=== PATIENT | male | born 1985 | race Caucasian/White ===

== ENCOUNTER 2019-07-08 15:11 | Emergency (ER) | payer OTHER, SELFPAY ==
[2019-07-08 15:13] VITALS: BP 154/89; PULSE 80; RESP 16; TEMP 37.2; O2SAT 97; BMI 34.2
--- NOTE | 2019-07-08 15:18 | ED.VIS.GEN ---
History of Present Illness Chief Complaint: Shortness of Breath Informant: Patient Onset: Days Context: Gradual Onset Timing: Continuous Current Severity: Moderate Maximum Severity: Moderate Narrative: The patient is an otherwise healthy male presents to the emergency department with cough, shortness of breath, and fever. His symptoms began on . He states he had fever and chills. Over the weekend, he had worsening cough with productive sputum. He states that over the past 36 hours, he had persistent fever. He denies any chest pain. He denies any history of underlying lung disease. He does not smoke. He denies any recent sick contacts. Prior similar symptoms: No Recent Illness/Hospitalization: No Past Medical History - Allergies and Home Meds Allergies/Adverse Reactions: Allergies No Known Allergies Allergy (Verified 07/08/19 15:13) Primary Care Physician: Care Physician,No Primary [Primary Care Provider] - Prior records reviewed: Yes Past Medical History: None Surgical History: no surgical history Smoking Status: Never smoker Review of Systems General: Reports: Fever. Denies: Chills, Sweats Eyes: Denies: Visual changes - bilaterally, Diplopia ENT: Denies: Rhinorrhea, Sore throat Cardiovascular: Denies: Chest pain, Palpitations Respiratory: Reports: Cough, Sputum. Denies: Dyspnea, Dyspnea on exertion Gastrointestinal: Denies: Abdominal pain, Nausea, Vomiting, Diarrhea, Melena, Hematochezia Genitourinary: Denies: Dysuria, Hematuria, Frequency Musculoskeletal: Denies: Back pain, Extremity Pain Skin: Denies: Rash, Wounds Neurological: Denies: Headache, Weakness, Numbness Physical Exam Vital Signs/Narrative: Vital Signs Temp Pulse Resp BP Pulse Ox 07/08/19 15:13 99 F 80 16 154/89 H 97 Inital Vital Signs reviewed: Yes General: Well nourished, Well developed, No Acute Distress Head: Normocephalic, Atraumatic Eyes: Perrl, EOMI ENT: Moist mucous membranes, No rhinorrhea Neck: Supple, Nontender Cardiovascular: Regular rate, Regular rhythm, No murmurs Respiratory: No distress, Chest nontender, Wheezing, Decreased Air Movement Abdomen: Soft, Nontender, Nondistended, Normal bowel sounds Back: Nontender, Normal Inspection Extremities: Nontender, No edema Skin: Normal color, No rash Neurological: Alert, Oriented x3, Cranial nerves II-XII grossly intact, Normal Strength, Normal Sensation Psychological: Normal affect, Normal Mood Diagnostic/Tx/Re-eval Chest X-Ray - ED: 2 View, Read by ED Physician, Read by Radiologist, Normal, Heart, Mediastinum, Bony Structures, Right Infiltrate - Medical Decision Making The patient presents with cough and fever. He does have coarse lung sounds, worse in the right lateral area. He was given breathing treatment with improvement of his aeration. Rapid influenza was negative. Chest x-ray demonstrates right middle lobe pneumonia. The patient has no tachycardia, hypoxia, or tachypnea. His pneumonia severity index is low. I do feel that he is safe for outpatient therapy. He will be double covered with Augmentin and azithromycin. He is given his first dose here. He was counseled concerning symptoms and reasons to return. He will be discharged home. Impression 1. Community-acquired pneumonia of the right middle lobe ED Disposition - Plan for ED Patient: Instructions: PNEUMONIA (Adult) Prescriptions: Amox/Clavulanate Tablet [Augmentin Tablet] 875 mg PO Q12H #20 tab Prescription Printed Azithromycin [Zithromax] 250 mg PO DAILY #4 tab Prescription Printed Referrals: Care Physician,No Primary [Primary Care Provider] -
[2019-07-08 15:23] VITALS: O2SAT 97
[2019-07-08] MEDS: predniSONE 20 MG Tablet 60 MG PO (15:26)
[2019-07-08] MEDS: Ipratropium/Albuterol Sulfate 3 ML AMPUL.NEB INHALATION (15:31)
[2019-07-08 15:32] VITALS: PULSE 88; RESP 15; O2SAT 96; O2SAT 97
--- NOTE | 2019-07-08 15:50 | RAD_ITS ---
STUDY: X-RAY CHEST REASON FOR EXAM: Male, 33 years old. Cough and congestion. Fever beginning Monday. TECHNIQUE: PA and lateral views of the chest. COMPARISON: None. FINDINGS: There is a right middle lobe infiltrate suggestive of pneumonia. The lungs are otherwise clear. There is no demonstrated pleural abnormality. Normal size heart. Normal mediastinum and ana. Normal visualized pulmonary arteries. Normal visualized aortic arch and descending thoracic aorta. Normal visualized thoracic spine. Normal visualized ribs, clavicles, and shoulders. There is no demonstrated abnormality of the visualized soft tissue structures of the upper abdomen. RAD/Chest PA and Lateral IMPRESSION: Right middle lobe pneumonia. Electronically Signed: Nathaniel Kumar DO at 16:06 EST Tel [phone], Service support ,
--- NOTE | 2019-07-08 16:00 | CM.ED ---
SOCIAL WORK REASON FOR REFERRAL: NO PRIMARY CARE PHYSICIAN MET WITH PATIENT IN ROOM. INTRODUCED ROLE AND REASON FOR REFERRAL. PATIENT PROVIDED WITH WHERE AND WHEN TO GO BROCHURE AND LIST OF LOCAL PRIMARY CARE PHYSICIANS. PATIENT VOICES NO QUESTIONS OR CONCERNS. PLAN: HOME WITH Denys MARQUIS, [employer], [employer] MAINTE[employer]CE [employer]LECT[employer].
[2019-07-08] MEDS: Albuterol 2.5 MG/3 ML VIAL.NEB. INHALATION (16:16)
[2019-07-08] MEDS: Amox/Clavulanate 875 MG Tablet PO (16:26)
[2019-07-08] MEDS: Azithromycin 250 MG Tablet 500 MG PO (16:26)
[2019-07-08 16:27] VITALS: PULSE 85; RESP 22; O2SAT 100
== END 2019-07-08 16:27 | disposition home or self-care (01) ==
LOC: ED 15:43
PROVIDERS: Emergency Provider Emergency Medicine
DX: J18.9 Pneumonia, unspecified organism (principal)
CPT/HCPCS: 71046; 87804; 94640; 99251; 99284; G0463

== ENCOUNTER 2022-05-25 17:38 | Emergency (ER) | payer OTHER, SELFPAY ==
[2022-05-25 17:39] VITALS: BP 132/83; PULSE 87; RESP 18; TEMP 36.6; O2SAT 99; BMI 38.0
--- NOTE | 2022-05-25 18:17 | EX.ED.GENINJ ---
HPI History of Present Illness Chief Complaint: Bite Detail of Chief Complaint: Dog bite to both hands Informant: patient Narrative Narrative: Patient presents the emergency department after sustaining dog bite to both hands. Patient states that the dog is known and is immunized and is known to have some behavior issues. Apparently the dog got loose and the patient tried to apprehend the dog and was bitten on both hands. Patient is right-hand dominant. Patient unsure of his last tetanus shot. PFSH PFSH Medical History Non-smoker Home Medications amoxicillin 875 mg-potassium clavulanate 125 mg tablet 875 mg PO Q12H #20 tabs 07/08/19 [Rx Last Taken Unknown] azithromycin 250 mg tablet 250 mg PO DAILY #4 tabs 07/08/19 [Rx Last Taken Unknown] multivitamin with minerals 1 ea PO DAILY 07/08/19 [History Last Taken Unknown] amoxicillin 875 mg-potassium clavulanate 125 mg tablet 875 mg PO Q12H #20 TABLETS 05/25/22 [Rx Last Taken Unknown] Allergy/AdvReac Type Severity Reaction Status Date / Time No Known Allergies Allergy Verified 05/25/22 17:39 Social History Smoking Status: Never smoker ROS ROS ED Review of Systems ROS Unobtainable: other Constitutional Constitutional ED: Reports lethargy; Denies chills, fever(s), sweats or weight loss Eyes Eyes: Denies blurry vision, change in vision or diplopia ENT ENT ED: Denies rhinorrhea or sore throat Cardiovascular Cardiovascular: Denies chest pain, orthopnea or racing heartbeat Respiratory/Chest Respiratory/Chest: Denies cough, dyspnea, dyspnea on exertion, orthopnea or sputum Gastrointestinal Gastrointestinal: Denies abdominal pain, diarrhea, nausea or vomiting Genitourinary Genitourinary ED: Denies dysuria, hematuria or urinary frequency Musculoskeletal Musculoskeletal: Reports other Details: Puncture wounds to both hands ; Denies arthralgias, back pain, myalgias or neck pain Integumentary Denies abscess, Abrasions or rash Neurologic Neurologic: Denies headache(s) or weakness Psychiatric Psychiatric: Denies anxiety, depression or suicidal thoughts Endocrine Endocrinology: Denies polydipsia, polyphagia or polyuria Hematologic/Lymphatic Hematologic/Lymphatic: Denies easy bleeding, easy bruising or lymphadenopathy Allergic/Immunologic Allergic/Immunologic ED: Denies mouth swelling, tongue swelling or urticaria EXAM Physical Exam Const Vital Signs: 05/25/22 17:39 Temperature 97.8 F Temperature Source Temporal Pulse Rate 87 Respiratory Rate 18 Blood Pressure 132/83 H Blood Pressure Mean 99 Pulse Ox 99 Oxygen Delivery Method Room Air Positive well nourished and well developed General Appearance ED: well developed and NAD HEENT Reports TM's clear and moist mucous membranes normocephalic and atraumatic; Negative for trauma or tenderness Tympanic Membrane ED: Yes TM's clear Eyes PERRL and EOMs intact bilaterally General Eye ED: Negative for pale conjunctiva or scleral icterus Neck no lymphadenopathy, supple and no JVD General: Negative for tenderness Chest Wall inspection of chest normal and palpation of chest normal Chest: Negative for tenderness Resp normal respiratory effort and clear to auscultation bilaterally Effort and Inspection: Negative for respiratory distress or pain with movement Auscultation: Negative for rhonchi, wheezes or diminished lung sounds Cardio regular rate, regular rhythm, S1 normal heart sound, S2 normal heart sound and no murmurs Peripheral Pulses: pulses 2+ throughout GI normal to inspection, nondistended, normoactive bowel sounds, soft to palpation, non-tender, non-distended and no masses Back/Spine no CVA tenderness and no thoracic nor lumbar tenderness Extremity Extremity Narrative: Evaluation of the left hand does reveal multiple small puncture wounds to the volar aspect and dorsal aspect of the left hand. Patient has normal range of motion of all digits with no bony deformity noted. He is neurovascularly intact. Evaluation of the right hand does reveal several puncture wounds that again are small without active bleeding. No significant wound is on the lateral aspect of the index finger and area of the second metacarpal. Patient again has normal range of motion of all digits and normal sensation. General Extremety ED: Negative for edema General Extremity: Negative for edema Neuro oriented x3, CN's II-XII intact bilaterally, no sensory deficits noted and gait normal Sensorium / Orientation: awake, alert, oriented to person, oriented to place and oriented to time Motor Exam: strength 5/5 throughout and strength abnormal Psych mental status grossly normal Skin no rashes or lesions noted and no wounds MDM MDM MDM Narrative Medical decision making narrative: Patient received a tetanus booster. Patient was started on Augmentin 875 mg p.o. Patient will have his wounds cleansed and irrigated and dressings applied. The wounds are not amenable to any type of suture repair and I advised against this. Patient advised to keep an eye on wounds for signs of infection such as redness, drainage kind purulent drainage, or condition should worsen anyway. Patient will be treated with Augmentin for 10 days. Discharge Plan Triage Chief Complaint: Bite ED Provider: Ashwin Teran Dx/Rx/DC Orders Clinical Impression: Dog bite Instructions: ED Dog Bite Prescriptions: New amoxicillin-pot clavulanate [amoxicillin-pot clavulanate] 875-125 mg tablet 875 mg PO Q12H Qty: 20 0RF No Action multivitamin with minerals 1 EACH tablet 1 ea PO DAILY azithromycin 250 MG tablet 250 mg PO DAILY Qty: 4 0RF amoxicillin-pot clavulanate 875 MG tablet 875 mg PO Q12H Qty: 20 0RF Primary Care Provider: Care Physician,No Primary Referrals: Kelby Umaña DO [Med Staff - Active Staff] - Leo Laird MD [Med Staff - Active Staff] - 3-5 Days Care Physician,No Primary [Primary Care Provider] - Disposition Disposition: Home, Self Care
[2022-05-25] MEDS: Diphth,Pertuss(Acell),Tet Vac 0.5 ML Vial IM (18:39)
[2022-05-25] MEDS: Amox/Clavulanate 875 MG Tablet PO (18:39)
--- NOTE | 2022-05-25 21:23 | ED.RN ---
pt refused to complete [facility] dog bite form. expressed concerns for the well being for the dog if he did. bear rojas rn
== END 2022-05-25 18:51 | disposition home or self-care (01) ==
LOC: ED 18:22
PROVIDERS: Emergency Provider Emergency Medicine; Visit Provider Emergency Medicine
DX: S61.451A Open bite of right hand, initial encounter (principal); S61.452A Open bite of left hand, initial encounter; Z23 Encounter for immunization; W54.0XXA Bitten by dog, initial encounter
CPT/HCPCS: 90471; 90715; 99282

== ENCOUNTER 2024-09-08 09:28 | Emergency (ER) | payer OTHER, SELFPAY ==
[2024-09-08 09:29] VITALS: BP 145/75; PULSE 84; RESP 18; TEMP 36.6; O2SAT 97; BMI 37.0
[2024-09-08 09:31] VITALS: BP 145/75; PULSE 82; RESP 16; TEMP 36.6; O2SAT 96
--- NOTE | 2024-09-08 10:08 | RAD_ITS ---
STUDY: X-RAY CHEST REASON FOR EXAM: Male, 39 years old. Fever with cough. TECHNIQUE: Frontal and lateral views of the chest. COMPARISON: July 08, 2019 FINDINGS: Low volume inspiration with bibasilar atelectasis, decreased since the prior study. There is no demonstrated pleural abnormality. Normal size heart. Normal mediastinum and ana. Normal visualized pulmonary arteries. Normal visualized aortic arch and descending thoracic aorta. Normal visualized thoracic spine. Normal visualized ribs, clavicles, and shoulders. No abnormality of the visualized soft tissue structures of the upper abdomen. RAD/Chest PA and Lateral IMPRESSION: Bibasilar atelectasis which is decreased since the prior study. No acute finding. Electronically Signed: Sid Pascal MD at 11:34 EST ,
--- NOTE | 2024-09-08 10:08 | EKG12_ITS ---
Test Reason : SOB Blood Pressure : */* mmHG Vent. Rate : 82 BPM Atrial Rate : 82 BPM P-R Int : 146 ms QRS Dur : 90 ms QT Int : 362 ms P-R-T Axes : 75 27 19 degrees QTcB Int : 422 ms Normal sinus rhythm Normal ECG Confirmed by DAKOTA BLUNT, SKYLER ([id number]), market editor INGA PUENTES ([id number]) on 09/09/2024 2:02:21 PM Referred By: AR Confirmed By: SKYLER DUNCAN MD
--- NOTE | 2024-09-08 10:09 | EDS_ITS ---
HPI History of Present Illness Chief Complaint: Chest Pain Detail of Chief Complaint: Cough and fever and chest discomfort Informant: patient Narrative Narrative: Patient presents to the emergency department with main complaint of a cough. He states that he got sick the week after Thanksgiving and did not feel like he got all the way better but did improve. He describes a head cold at that time. 2 days ago started having worsening cough. He is coughing up some sputum that is yellow in color. Last night he had fever up to 99 at home. Also for the last 2 days she has had some burning chest discomfort in the right upper chest that made worse with cough. Denies any radiation of the pain. Denies recent travel or surgery. No history of PE or DVT. PFSH [facility] Medical History Non-smoker Home Medications ?Medication ?Instructions ?Recorded ?Last Taken ?Type multivitamin with minerals 1 ea PO DAILY 07/08/19 Unknown History doxycycline monohydrate 100 mg 100 mg PO BID #20 CAPSULES 09/08/24 Unknown Rx capsule Allergy/AdvReac Type Severity Reaction Status Date / Time No Known Allergies Allergy Verified 09/08/24 09:32 Social History (Updated 09/08/24 @ 11:31 by Gail Ogden) household members: family Smoking Status: Never smoker ROS ROS ED Review of Systems ROS Unobtainable: other Constitutional Constitutional ED: Reports fever(s) and lethargy; Denies chills, sweats or weight loss Eyes Eyes: Denies blurry vision, change in vision or diplopia ENT ENT ED: Denies rhinorrhea or sore throat Cardiovascular Cardiovascular: Reports chest pain; Denies orthopnea or racing heartbeat Respiratory/Chest Respiratory/Chest: Reports cough and sputum; Denies dyspnea, dyspnea on exertion or orthopnea Gastrointestinal Gastrointestinal: Denies abdominal pain, diarrhea, nausea or vomiting Genitourinary Genitourinary ED: Denies dysuria, hematuria or urinary frequency Musculoskeletal Musculoskeletal: Denies arthralgias, back pain, myalgias or neck pain Integumentary Denies abscess, Abrasions or rash Neurologic Neurologic: Denies headache(s) or weakness Psychiatric Psychiatric: Denies anxiety, depression or suicidal thoughts Endocrine Endocrinology: Denies polydipsia, polyphagia or polyuria Hematologic/Lymphatic Hematologic/Lymphatic: Denies easy bleeding, easy bruising or lymphadenopathy Allergic/Immunologic Allergic/Immunologic ED: Denies mouth swelling, tongue swelling or urticaria EXAM Physical Exam Const Vital Signs: 09/08/24 09:29 09/08/24 09:31 09/08/24 11:29 Temperature 97.9 F 97.9 F Temperature Source Oral Oral Pulse Rate 84 82 80 Respiratory Rate 18 16 18 Respiratory Effort Blood Pressure 145/75 H 145/75 H 118/77 Blood Pressure Mean 98 98 90 Pulse Ox 97 96 96 Oxygen Delivery Method Room Air Room Air 09/08/24 11:31 Temperature Temperature Source Pulse Rate Respiratory Rate Respiratory Effort Normal Non-Labored Blood Pressure Blood Pressure Mean Pulse Ox Oxygen Delivery Method Positive well nourished and well developed General Appearance ED: well developed and NAD HEENT Reports TM's clear and moist mucous membranes normocephalic and atraumatic; Negative for trauma or tenderness Tympanic Membrane ED: Yes TM's clear Eyes PERRL and EOMs intact bilaterally General Eye ED: Negative for pale conjunctiva or scleral icterus Neck no lymphadenopathy, supple and no JVD General: Negative for tenderness Chest Wall inspection of chest normal and palpation of chest normal Chest: Negative for tenderness Resp normal respiratory effort and clear to auscultation bilaterally Effort and Inspection: Negative for respiratory distress or pain with movement Auscultation: Negative for rhonchi, wheezes or diminished lung sounds Cardio regular rate, regular rhythm, S1 normal heart sound, S2 normal heart sound and no murmurs Peripheral Pulses: pulses 2+ throughout GI normal to inspection, nondistended, normoactive bowel sounds, soft to palpation, non-tender, non-distended and no masses Back/Spine no CVA tenderness and no thoracic nor lumbar tenderness Extremity normal to inspection General Extremety ED: Negative for edema General Extremity: Negative for edema Neuro oriented x3, CN's II-XII intact bilaterally, no sensory deficits noted and gait normal Sensorium / Orientation: awake, alert, oriented to person, oriented to place and oriented to time Motor Exam: strength 5/5 throughout and strength abnormal Psych mental status grossly normal Skin no rashes or lesions noted and no wounds MDM MDM MDM Narrative Medical decision making narrative: Patient presents with recurrent cough that is productive. Fever up to 99. Clinically looks well. No risk factors for PE or DVT. I did obtain COVID flu and RSV testing that was negative. Patient also had a chest x-ray that showed nothing acute. EKG obtained on arrival shows sinus rhythm with ventricular rate of 82 bpm with no acute ST segment changes. Clinically I do not feel he has acute coronary syndrome. Suspect likely a bronchitis. Will start on doxycycline. Will refer to primary care physician on-call for no doc for follow-up. Lab Data Attestation: I reviewed the patient's lab results. Radiography Diagnostic Testing: Clinical Impression(s) from Imaging Studies Chest X-Ray 09/08/24 10:08 IMPRESSION: Bibasilar atelectasis which is decreased since the prior study. No acute finding. Electronically Signed: Sid Pascal MD at 11:34 EST , 2 view chest x-ray obtained interpreted by myself as no evidence of infiltrate or pneumothorax or acute disease process. Radiology in agreement. EKG Initial EKG: Attestation: I personally reviewed and interpreted this EKG as follows: Comments: Sinus rhythm with a ventricular rate of 82 bpm with no acute ST segment changes Discharge Plan Triage Chief Complaint: Chest Pain ED Provider: Ashwin Teran Dx/Rx/DC Orders Clinical Impression: Bronchitis, Chest pain Instructions: Acute Bronchitis, ED Chest Pain, Uncertain Cause, ED Chest Wall Strain Prescriptions: New doxycycline monohydrate 100 mg capsule 100 mg PO BID Qty: 20 0RF No Action multivitamin with minerals 1 EACH tablet 1 ea PO DAILY Primary Care Provider: Care Physician,No Primary Referrals: Steve Mckoy MD [Med Staff - Frame Bender] - Care Physician,No Primary [Primary Care Provider] - Steve Mckoy MD [[facility] [place]] - 5-7 Days Print Language: [place] Disposition Disposition: Home, Self Care
[2024-09-08 11:29] VITALS: BP 118/77; PULSE 80; RESP 18; O2SAT 96
[2024-09-08 12:14] VITALS: BP 120/78; PULSE 78; RESP 18; TEMP 36.8; O2SAT 100
== END 2024-09-08 12:15 | disposition home or self-care (01) ==
PROVIDERS: Emergency Provider Emergency Medicine; Visit Provider Emergency Medicine
DX: J40 Bronchitis, not specified as acute or chronic (principal); R07.9 Chest pain, unspecified